=== PATIENT | female | born 1995 | race Caucasian/White ===

== ENCOUNTER 2022-03-21 00:55 | Emergency (ER) | payer BC | END 2022-03-21 03:00 | disposition home or self-care (01) | LOC: ERS 00:55 | DX: S09.90XA Unspecified injury of head, initial encounter (principal); F10.929 Alcohol use, unspecified with intoxication, unspecified; E10.9 Type 1 diabetes mellitus without complications; D64.9 Anemia, unspecified; W22.8XXA Striking against or struck by other objects, initial encounter; Z79.899 Other long term (current) drug therapy | CPT/HCPCS: 36416; 70450 ==